=== PATIENT | female | born 1945 | race Caucasian/White ===

== ENCOUNTER 2024-04-17 16:18 | Emergency (ER) | payer MEDICARE, OTHER ==
[2024-04-17] MEDS ORDERED: Naloxone 0.4 MG/ML SDV IVPUSH PRN (16:34)
[2024-04-17] MEDS: Ondansetron 4 MG/2 ML SDV IVPUSH ONE ×2 (16:38→19:15)
[2024-04-17] MEDS: fentaNYL 50 MCG/ML SDV IVPUSH ONE ×3 (16:40→19:40)
[2024-04-17] MEDS ORDERED: Sodium Chloride 0.9% 10 ML Syringe FLUSH PRN (16:43)
[2024-04-17] MEDS: Lactated Ringers 1,000 ML IV SCH (16:48)
[2024-04-17 16:52] LABS: BASOPHILS ABSOLUTE AUTO 0.02 K/uL (0.00-0.20); BASOPHILS PERCENT AUTO 0.2 % (0.0-2.0); EOSINOPHILS ABSOLUTE AUTO 0.17 K/uL (0.00-0.50); EOSINOPHILS PERCENT AUTO 1.7 % (0.0-5.0); HEMATOCRIT 37.2 % (34.0-46.0); HEMOGLOBIN 12.3 g/dL (11.7-15.5); LYMPHOCYTES ABSOLUTE AUTO 1.03 K/uL (0.50-3.50); LYMPHOCYTES PERCENT AUTO 10.4 % (10.0-50.0); MEAN CORPUSCULAR HEMOGLOBIN 30.9 pg (28.2-33.3); MEAN CORPUSCULAR HGB CONC 33.1 g/dL (31.7-36.0); MEAN CORPUSCULAR VOLUME 93.5 fL (84.0-98.0); MONOCYTES ABSOLUTE AUTO 0.78 K/uL (0.00-1.00); MONOCYTES PERCENT AUTO 7.9 % (2.0-14.0); NEUTROPHILS ABSOLUTE AUTO 7.86 K/uL (1.40-7.00); NEUTROPHILS PERCENT AUTO 79.8 % (45.0-80.0); PLATELET COUNT,PLT 142 K/uL (150-350); RED BLOOD CELL COUNT 3.98 M/uL (3.77-5.09); RED CELL DISTRIBUTION WIDTH 13.5 % (11.2-14.1); WHITE BLOOD CELL COUNT,WBC 9.9 K/uL (4.0-10.2)
[2024-04-17 16:55] LABS: APPEARANCE,URINE SLIGHTLY CLOUDY; BILIRUBIN,URINE NEGATIVE (NEGATIVE); COLOR,URINE YELLOW; GLUCOSE,URINE NEGATIVE (NEGATIVE); KETONES,URINE TRACE mg/dL (NEGATIVE); LEUKOCYTE ESTERASE,URINE SMALL (NEGATIVE); NITRITE,URINE POSITIVE (NEGATIVE); OCCULT BLOOD,URINE MODERATE (NEGATIVE); PH,URINE 5.5 (5.0-9.0); PROTEIN,URINE TRACE mg/dL (NEGATIVE); UROBILINOGEN,URINE 0.2 E.U./dL (0.2-1.0)
[2024-04-17 16:56] LABS: BACTERIA,URINE MODERATE /HPF (NONE TO FEW); EPITHELIAL CELLS,URINE FEW /LPF; WBC,URINE 50-75 /HPF
[2024-04-17 17:08] LABS: ALANINE AMINOTRANSFERASE,ALT 25 U/L (12-78); ALBUMIN 4.1 g/dL (3.4-5.0); ALKALINE PHOSPHATASE 102 IU/L (46-116); ANION GAP 10.9 meq/L (7-15); ASPARTATE AMNIOTRANSFERASE,AST 20 U/L (15-37); BILIRUBIN TOTAL 0.4 mg/dL (0.2-1.0); BLOOD UREA NITROGEN,BUN 24 mg/dL (7-18); CALCIUM 9.2 mg/dL (8.5-10.1); CARBON DIOXIDE,CO2 26.1 mmol/L (21.0-32.0); CHLORIDE,CL 103 mmol/L (98-107); CREATININE 1.21 mg/dL (0.51-1.17); GLUCOSE RANDOM 91 mg/dL (70-99); POTASSIUM,K 3.8 mmol/L (3.5-5.1); PRO B-TYPE NATRIUR PEPT,BNPPRO 221 pg/mL (0-125); PROTEIN TOTAL,TP 7.1 g/dL (6.4-8.2); SODIUM,NA 140 mmol/L (136-145)
[2024-04-17 17:09] LABS: ESTIMATED GFR 46 mL/min (>=60)
[2024-04-17 17:17] LABS: PROTHROMBIN TIME 9.7 SEC (9.0-11.1)
[2024-04-17] MEDS: cefTRIAXone 1 GM in Sodium Chloride 0.9% 100 ML IV ONE (18:23)
[2024-04-17] MEDS: Sodium Chloride 0.9% 10 ML Syringe FLUSH PRN (19:42)
[2024-04-17 20:05] VITALS: BP 115/69; PULSE 73
== END 2024-04-17 20:00 ==
LOC: LL.ED 16:18
DX: N17.9 Acute kidney failure, unspecified (principal); N13.2 Hydronephrosis with renal and ureteral calculous obstruction; I10 Essential (primary) hypertension; E03.9 Hypothyroidism, unspecified; Z79.899 Other long term (current) drug therapy; Z79.02 Long term (current) use of antithrombotics/antiplatelets; Z88.1 Allergy status to other antibiotic agents; Z88.8 Allergy status to other drugs, medicaments and biological substances
CPT/HCPCS: 36415; 74176; 80053; 81001; 83880; 85025; 85610; 87086; 87088; 96361; 96374; 96375; 96376; 99285-25; J0696; J2405; J3010; J3490; J7120

== ENCOUNTER 2024-06-04 11:16 | Emergency (ER) | payer MEDICARE, OTHER ==
[2024-06-04] MEDS ORDERED: Sodium Chloride 0.9% 10 ML Syringe FLUSH PRN (11:20)
[2024-06-04 11:45] LABS: BASOPHILS ABSOLUTE AUTO 0.04 K/uL (0.00-0.20); BASOPHILS PERCENT AUTO 0.4 % (0.0-2.0); EOSINOPHILS PERCENT AUTO 1.1 % (0.0-5.0); HEMATOCRIT 32.3 % (34.0-46.0); HEMOGLOBIN 10.5 g/dL (11.7-15.5); LYMPHOCYTES ABSOLUTE AUTO 0.93 K/uL (0.50-3.50); LYMPHOCYTES PERCENT AUTO 10.1 % (10.0-50.0); MEAN CORPUSCULAR HEMOGLOBIN 30.2 pg (28.2-33.3); MEAN CORPUSCULAR HGB CONC 32.5 g/dL (31.7-36.0); MEAN CORPUSCULAR VOLUME 92.8 fL (84.0-98.0); MONOCYTES PERCENT AUTO 7.6 % (2.0-14.0); NEUTROPHILS ABSOLUTE AUTO 7.48 K/uL (1.40-7.00); NEUTROPHILS PERCENT AUTO 80.8 % (45.0-80.0); PLATELET COUNT,PLT 141 K/uL (150-350); RED BLOOD CELL COUNT 3.48 M/uL (3.77-5.09); RED CELL DISTRIBUTION WIDTH 14.4 % (11.2-14.1); WHITE BLOOD CELL COUNT,WBC 9.3 K/uL (4.0-10.2)
[2024-06-04] MEDS: SODIUM CHLORIDE 0.9% IV ONE (12:02)
[2024-06-04] MEDS: DESMOPRESSIN IV ONE (12:02)
[2024-06-04 12:10] LABS: PROTHROMBIN TIME 9.8 SEC (9.0-11.1)
[2024-06-04 12:15] LABS: LACTIC ACID 0.7 mmol/L (0.4-2.0)
[2024-06-04] MEDS: levETIRAcetam 500 MG/5 ML SDV IVPUSH ONE (12:18)
[2024-06-04 12:19] LABS: ALANINE AMINOTRANSFERASE,ALT 24 U/L (12-78); ALBUMIN 3.7 g/dL (3.4-5.0); ALKALINE PHOSPHATASE 97 IU/L (46-116); ANION GAP 12.1 meq/L (7-15); ASPARTATE AMNIOTRANSFERASE,AST 19 U/L (15-37); BILIRUBIN TOTAL 0.8 mg/dL (0.2-1.0); BLOOD UREA NITROGEN,BUN 14 mg/dL (7-18); CALCIUM 8.9 mg/dL (8.5-10.1); CARBON DIOXIDE,CO2 23.9 mmol/L (21.0-32.0); CHLORIDE,CL 104 mmol/L (98-107); CREATININE 0.97 mg/dL (0.51-1.17); ESTIMATED GFR 59 mL/min (>=60); GLUCOSE RANDOM 98 mg/dL (70-99); MAGNESIUM 1.9 mg/dL (1.8-2.4); POTASSIUM,K 3.8 mmol/L (3.5-5.1); PRO B-TYPE NATRIUR PEPT,BNPPRO 697 pg/mL (0-125); PROTEIN TOTAL,TP 6.8 g/dL (6.4-8.2); SODIUM,NA 140 mmol/L (136-145)
== END 2024-06-04 13:20 ==
LOC: LL.ED 11:16
DX: S06.5XAA Traumatic subdural hemorrhage with loss of consciousness status unknown, initial encounter (principal); I10 Essential (primary) hypertension; E03.9 Hypothyroidism, unspecified; Z88.8 Allergy status to other drugs, medicaments and biological substances; Z79.82 Long term (current) use of aspirin; Z79.890 Hormone replacement therapy; Z79.899 Other long term (current) drug therapy; W19.XXXA Unspecified fall, initial encounter
CPT/HCPCS: 36415; 70450; 71045; 72125; 80053; 83605; 83735; 83880; 84484; 85025; 85610; 85730; 93005; 96365; 96375; 99285-25; J1953; J2597; J3490